=== PATIENT | male | born 1960 | race Caucasian/White ===

== ENCOUNTER 2022-12-31 01:06 | Emergency (ER) | payer BC, MEDICAID ==
[~2022-12-31] VITALS: Ht 182.9 cm; Wt 78.0 kg
[2022-12-31 01:11] VITALS: BP 118/61
[2022-12-31] MEDS ORDERED: ACETAMINOPHEN 325MG TABLET PO ONE (01:45)
[2022-12-31] MEDS ORDERED: IBUPROFEN 400MG TABLET PO ONE (01:45)
[2022-12-31] MEDS ORDERED: IBUP-2028 MT (02:36)
== END 2022-12-31 04:41 | disposition home or self-care (01) ==
LOC: ER 01:06
DX: R07.81 Pleurodynia (principal); Z88.0 Allergy status to penicillin
CPT/HCPCS: 99283

== ENCOUNTER 2023-01-03 15:04 | Emergency (ER) | payer BC, MEDICAID ==
[~2023-01-03] VITALS: Ht 175.3 cm; Wt 73.0 kg
[~2023-01-03 15:04] MED LIST: IBUP-2028 MT
[2023-01-03 15:06] VITALS: BP 133/80
[2023-01-03 16:20] LABS: EOSINOPHILS % 1.9 % (0.0-5.0); HEMATOCRIT. 43.3 % (42.0-52.0); HEMOGLOBIN. 14.6 g/dL (14.0-18.0); LYMPHOCYTES % 14.8 % (20.0-50.0); MEAN CORPUSCULAR HEMOGLOBIN 29.2 pg (28.0-32.0); MEAN CORPUSCULAR VOLUME 86.7 fL (80.0-94.0); MEAN PLATELET VOLUME 6.8 fl (7.4-10.4); MONOCYTES % 5.4 % (2.0-8.0); NEUTROPHILS % 76.9 % (40.0-76.0); PLATELET 446 x1000/uL (130-400); RED BLOOD CELL COUNT 4.99 mill/uL (4.7-6.1); RED CELL DISTRIBUTION WIDTH 15.8 % (11.6-14.6)
[2023-01-03 16:28] LABS: CHLORIDE 104 mEq/L (98-107)
== END 2023-01-03 23:23 | disposition left against medical advice (07) ==
LOC: ER 15:28
DX: C61 Malignant neoplasm of prostate (principal); C78.00 Secondary malignant neoplasm of unspecified lung; M79.89 Other specified soft tissue disorders; R07.81 Pleurodynia; M79.606 Pain in leg, unspecified; Z88.0 Allergy status to penicillin
CPT/HCPCS: 36415; 80053; 85025; 99283